=== PATIENT | male | born 1950 | race Caucasian/White ===

== ENCOUNTER → 2017-05-08 | Outpatient (CLI) | payer OTHER, MEDICARE | LOC: FIMAGING 09:31 | PROVIDERS: ATTEND Internal Medicine | DX: E05.90 Thyrotoxicosis, unspecified without thyrotoxic crisis or storm (principal) ==

== ENCOUNTER → 2017-06-03 | Outpatient (CLI) | payer OTHER, MEDICARE | LOC: FIMAGING 10:00 | PROVIDERS: ATTEND Internal Medicine | DX: E05.90 Thyrotoxicosis, unspecified without thyrotoxic crisis or storm (principal); E04.1 Nontoxic single thyroid nodule | CPT/HCPCS: 78014; A9516 ==

== ENCOUNTER → 2017-10-05 | Outpatient (CLI) | payer OTHER, MEDICARE | LOC: FIMAGING 16:19 | PROVIDERS: ATTEND Internal Medicine | DX: E04.2 Nontoxic multinodular goiter (principal); E05.90 Thyrotoxicosis, unspecified without thyrotoxic crisis or storm ==

== ENCOUNTER → 2017-10-29 | Outpatient (CLI) | payer OTHER, MEDICARE | LOC: FIMAGING 09:46 | PROVIDERS: ATTEND Internal Medicine | DX: Z13.820 Encounter for screening for osteoporosis (principal); M85.89 Other specified disorders of bone density and structure, multiple sites; E05.90 Thyrotoxicosis, unspecified without thyrotoxic crisis or storm ==